=== PATIENT | female | born 1970 | race Caucasian/White ===

== ENCOUNTER 2017-05-07 07:36 | Day surgery (SDC) | payer MEDICAID, OTHER ==
[~2017-05-07 07:36] MED LIST: Lactated Ringers 1,000 ML IV SCH; Lidocaine 1%/Sod Bicarbonate in NS 8.4% 1 ML Syringe IV PRN; Sodium Chloride 0.9% 10 ML Syringe FLUSH PRN
--- NOTE | 2017-05-07 08:10 | PCM.PREANE ---
Preanesthetic Assessment - Procedure Proposed Procedure: L achilles tendon debridement - Anesthesia/Transfusion/Family Hx Anesthesia History: Prior Anesthesia Reaction Type of Anesthesia Reaction: Excessive Nausea/Vomiting Family History of Anesthesia Reaction: No Transfusion History: No Prior Transfusion(s) Additional History: HX of blood clots, cervical cancer - Review of Systems General: No Symptoms Pulmonary: No Symptoms Cardiovascular: Other (HTN) Gastrointestinal: No Symptoms Neurological: Other (finromyalagia) Other: Reports: Diabetes (DM2), Thyroid Problems (hypothyroidism), Depression, Anxiety - Physical Assessment NPO Status Date: 05/07/17 NPO Status Time: 00:00 Pulse: 78 O2 Sat by Pulse Oximetry: 96 Respiratory Rate: 20 Blood Pressure: 128/78 Temperature: 37.0 C Height: 1.63 m Weight: 114.759 kg ASA Class: 2 Mental Status: Alert & Oriented x3 Airway Class: Mallampati = 2 Dentition: Reports: Normal Dentition Thyro-Mental Finger Breadths: 3 Mouth Opening Finger Breadths: 3 ROM/Head Extension: Full Lungs: Clear to Auscultation, Normal Respiratory Effort Cardiovascular: Regular Rate, Regular Rhythm - Allergies Allergies/Adverse Reactions: Allergies Allergy/AdvReac Type Severity Reaction Status Date / Time hydrocodone Allergy Nausea Verified 05/06/17 13:52 - Blood Blood Available: No Product(s) Available: None - Anesthesia Plan Pre-Op Medication Ordered: None - Acknowledgements Anesthesia Type Planned: General Anesthesia (scopolamine patch preop, OETT discussed ) Pt an Appropriate Candidate for the Planned Anesthesia: Yes Alternatives and Risks of Anesthesia Discussed w Pt/Guardian: Yes Pt/Guardian Understands and Agrees with Anesthesia Plan: Yes PreAnesthesia Questionnaire HEENT History: Reports: None Cardiovascular History: Reports: Hypertension Respiratory History: Reports: None Gastrointestinal History: Reports: Other (See Below) Other Gastrointestinal History: intestinal blood clot Genitourinary History: Reports: None SHOVE UP History: Reports: None Musculoskeletal History: Reports: Fibromyalgia, Other (See Below) Other Musculoskeletal History: retrocalcaneal exostosis, tarsal tunnel syndrome , plantar fasciitis Neurological History: Reports: Neuropathy, Diabetic Psychiatric History: Reports: Anxiety, Depression Endocrine/Metabolic History: Reports: Diabetes, Type II, Obesity/BMI 30+, Other (See Below) Other Endocrine/Metabolic History: vitamin B12 deficiency Hematologic History: Reports: None Immunologic History: Reports: None Oncologic (Cancer) History: Reports: None Dermatologic History: Reports: None - Past Surgical History Head Surgeries/Procedures: Reports: None HEENT Surgical History: Reports: Tonsillectomy Cardiovascular Surgical History: Reports: None Respiratory Surgical History: Reports: None GI Surgical History: Reports: Colonoscopy Female Surgical History: Reports: Hysterectomy Male Surgical History: Reports: None Endocrine Surgical History: Reports: None Neurological Surgical History: Reports: None Oncologic Surgical History: Reports: None Dermatological Surgical History: Reports: None - SUBSTANCE USE Smoking Status *Q: Former Smoker Second Hand Smoke Exposure: No Recreational Drug Use History: No - HOME MEDS Home Medications: Home Meds DULoxetine HCl [Duloxetine HCl] 60 mg PO BEDTIME 05/06/17 [History] Lisinopril [Lisinopril] 40 mg PO DAILY 05/06/17 [History] busPIRone [Buspar] 10 mg PO BID 05/06/17 [History] lamoTRIgine [Lamotrigine] 100 mg PO DAILY 05/06/17 [History] metFORMIN [Glucophage] 500 mg PO DAILY 05/06/17 [History] - CURRENT (IN HOUSE) MEDS Current Meds: Current Medications Lactated Ringer's (Ringers, Lactated) 1,000 mls @ 125 mls/hr IV ASDIRECTED SCHUYLER Stop: 05/07/17 23:00 Lidocaine/Sodium Bicarbonate (Buffered Lidocaine 1% In Ns 8.4%) 0.25 ml IV ONETIME PRN PRN Reason: Prior to IV Start Stop: 05/07/17 18:00 Sodium Chloride (Saline Flush) 10 ml FLUSH ASDIRECTED PRN PRN Reason: Keep Vein Open Stop: 05/07/17 18:00
[2017-05-07] MEDS ORDERED: HYDROmorphone 1 MG/ML Syringe ONE ×2 (08:18→11:53)
[2017-05-07] MEDS ORDERED: Ondansetron 4 MG/2 ML SDV ONE (08:18)
[2017-05-07] MEDS ORDERED: Rocuronium 50 MG/5 ML Vial ONE (08:18)
[2017-05-07] MEDS ORDERED: Dexamethasone 4 MG/ML 5 ML MDV ONE (08:18)
[2017-05-07] MEDS ORDERED: ceFAZolin 1 GM Vial ONE (08:18)
[2017-05-07] MEDS ORDERED: Lidocaine 1% 4 ML ONE (08:18)
[2017-05-07] MEDS ORDERED: Lactated Ringers 1,000 ML ONE ×2 (08:18→10:57)
[2017-05-07] MEDS ORDERED: Ketorolac 30 MG/ML SDV ONE (08:18)
[2017-05-07] MEDS ORDERED: Propofol 200 MG/20 ML SDV ONE ×2 (08:19→10:03)
[2017-05-07] MEDS ORDERED: fentaNYL 250 MCG/5 ML SDV ONE (08:19)
[2017-05-07] MEDS ORDERED: Midazolam 1 MG/ML 2 ML SDV ONE (08:19)
[2017-05-07] MEDS ORDERED: Scopolamine 1 MG Transdermal Patch TOP ONE (08:27)
[2017-05-07] MEDS ORDERED: Bupivacaine 0.5% 30 ML SDV ONE (08:52)
[2017-05-07] MEDS ORDERED: Lidocaine 1% 30 ML SDV ONE (08:52)
[2017-05-07] MEDS ORDERED: Albuterol 0.083% 2.5 MG/3 ML Neb Soln NEB PRN (10:25)
[2017-05-07] MEDS ORDERED: HYDROmorphone 0.5 MG/0.5 ML Syringe IVPUSH PRN (10:25)
[2017-05-07] MEDS ORDERED: Ondansetron 4 MG/2 ML SDV IVPUSH PRN (10:25)
[2017-05-07] MEDS ORDERED: diphenhydrAMINE 50 MG/ML SDV IVPUSH PRN (10:25)
[2017-05-07] MEDS ORDERED: Metoclopramide 10 MG/2 ML SDV IV PRN (10:25)
[2017-05-07] MEDS ORDERED: Phenylephrine 1 MG in Sodium Chloride 0.9% 10 ML IV SCH (10:30)
[2017-05-07] MEDS ORDERED: diphenhydrAMINE 50 MG/ML SDV ONE (10:32)
[2017-05-07] MEDS ORDERED: fentaNYL 100 MCG/2 ML SDV ONE ×3 (10:34→12:47)
[2017-05-07] MEDS ORDERED: Neostigmine Methylsulfate 1 MG/ML 5 ML Syringe ONE (10:35)
[2017-05-07] MEDS ORDERED: Labetalol 100 MG/20 ML MDV ONE (12:01)
--- NOTE | 2017-05-07 12:28 | PCM.POSTAN ---
POST ANESTHESIA ASSESSMENT - MENTAL STATUS Mental Status: Alert - VITAL SIGNS Pulse Rate: 70 SaO2: 97 Resp Rate: 8 Blood Pressure: 143/77 Temperature: 36.5 C - RESPIRATORY Respiratory Status: Respiratory Rate WNL, Airway Patent, O2 Saturation Stable, Supplemental Oxygen - CARDIOVASCULAR CV Status: Pulse Rate WNL, Blood Pressure Stable - GASTROINTESTINAL GI Status: No Symptoms - POST OP HYDRATION Hydration Status: Adequate & Stable
--- NOTE | 2017-05-07 12:32 | PCM.OPNOTE ---
- General Post-Op/Procedure Note Date of Surgery/Procedure: 05/07/17 Operative Procedure(s): 1.) Gastrocnemius Recession, LEFT leg. 2.) Debridement/Decompression Achilles Tendon, with Re-attachment using Arthrex Suture bridge. 3.) Retro-Calcaneal Exostectomy, LEFT heel. Pre Op Diagnosis: 1.) Painful, Chronic Achilles tendinosis, LEFT ankle. 2.) Painful, Retro-Calcaneal Exostosis/Bursitis, LEFT heel. 3.) Painful Achilles Equinus, LEFT leg. Anesthesia Technique: General LMA, Local Primary Surgeon: Keagan Irvin II Anesthesia Provider: Alyssa Jon Complications: None Condition: Good Free Text/Narrative:: Patient left the OR for recovery with vital signs stable & vascular status grossly intact, LEFT heel/leg.
[2017-05-07] MEDS: fentaNYL 100 MCG/2 ML SDV IVPUSH PRN ×2 (12:35→12:55)
[2017-05-07] MEDS ORDERED: Acetaminophen/oxyCODONE 325-5 MG Tab PO PRN (13:36)
--- NOTE | 2017-05-07 18:40 | OR ---
DATE OF OPERATION: 05/07/2017 SURGEON: Keagan Irvin II, DPM LOCATION: [facility]. ANESTHESIA: LMA general anesthesia with local block about the left foot and ankle. ANESTHESIA PROVIDER: Alyssa Jon CRNA. HEMOSTASIS: Left pneumatic thigh tourniquet at 300 mmHg pressure for 90 minutes. PREOPERATIVE DIAGNOSIS: 1. Painful and symptomatic chronic Achilles tendinosis, left ankle. 2. Painful and symptomatic retrocalcaneal exostosis and bursitis, left heel. 3. Painful and symptomatic Achilles equinus, left heel. POSTOPERATIVE DIAGNOSIS: 1. Painful and symptomatic chronic Achilles tendinosis, left ankle. 2. Painful and symptomatic retrocalcaneal exostosis and bursitis, left heel. 3. Painful and symptomatic Achilles equinus, left heel. OPERATION PERFORMED: 1. Gastrocnemius recession, left leg. 2. Debridement and decompression of the Achilles tendon with reattachment using Arthrex suture bridge. 3. Retrocalcaneal exostectomy, left calcaneus. DESCRIPTION OF PROCEDURE: Upon arrival and admission to the hospital, the patient was examined and cleared for surgery by the assigned anesthesia provider. The patient was given 3 grams of Ancef IV piggyback, after which she was transferred to the operating room table in the supine position. After the patient had been given a combination of the sedations and was intubated for LMA general anesthesia, she was then repositioned in the prone position. The patient was given a combination of sedations during that time and received 10 mL of 1:1 mixture of 1% lidocaine plain and 0.5% Marcaine plain about the operatory site of the left heel and leg. Left lower extremity was then wrapped with cotton Webril padding above the thigh in preparation for nonsterile pneumatic thigh tourniquet. The left lower extremity was then prepped and draped in the usual aseptic manner. Left lower extremity would then be elevated and exsanguinated using Esmarch bandage before inflating the pneumatic ankle tourniquet to 300 mmHg pressure. The Esmarch bandage was removed and the left lower extremity was placed back to the level of the operating room table. Attention was then directed 15 cm proximal to the insertion of the Achilles tendon where an approximately 4 cm linear incision was created overlying the Achilles aponeurosis. The aponeurosis was then resected from medial to lateral. Closure of this wound was undertaken with 3-0 Vicryl and skin was reapproximated with 4-0 nylon in running interlocking simple suture knots. Attention was then directed to the inferior aspect of the left Achilles tendon at its insertion site where an approximately 6 cm curvilinear incision was created medial to the Achilles tendon and the retrocalcaneal bursitis and exostosis to come to terminate at the most lateral extent of the left heel. This was a controlled depth skin incision taken down to the level of subcutaneous structures with care taken to retract the vital neurovascular structures within the area as well as cauterize and ligate all superficial bleeders as deemed necessary. Continuous soft tissue dissection was then taken down to the level of the Achilles tendon, which was noted to be bulbous and thick and calcific in nature. It was debrided free from the bony overgrowth and exostosis, which had presented itself at the insertion site. The Achilles tendon was debrided and thinned of all tendinosis tissue as well as calcific portions within it. The retrocalcaneal exostosis was resected as well as retrocalcaneal posterior superior prominence and the bursal tissue that was developing in this area. The wound was then copiously lavaged with sterile saline solution and an Arthrex suture bridge was then opened and 4 drill holes were then made into the posterior aspect of the calcaneus and were done so with the insertion of the Achilles tendon centered between the 4 holes. The Arthrex suture bridge allowed for 2 superior swaged on BioComposite screws to be placed within the more proximal drill holes and drawn through the Achilles tendon and then holding it in a cross stitch fashion for a small secondary BioComposite screw to tack down the Achilles tendon at its most distal aspect. The wound was copiously lavaged with sterile saline solution and closure was undertaken while the foot was in a more plantarflexed position with 3-0 Vicryl and 3-0 nylon in the form of running interlocking simple suture knots. An additional 10 mL of 0.5% Marcaine plain were injected about the operatory site. Dressings were then consisted of Betadine soaked Adaptic gauze, 4x4 gauze, Ilan, and an Sanjiv bandage. Upon completion of the surgery, left pneumatic thigh tourniquet was deflated. It was noted digits 1 through 5 of the left lower extremity came pink, indicating normal vascular perfusion had returned. The patient appeared to tolerate the procedure and anesthesia well and would leave the OR for recovery with her vital signs being stable and vascular status intact digits 1 through 5 of the left lower extremity with no apparent complications. In recovery, the patient received written and oral postoperative instructions as well as postoperative pain medication. The patient will ambulate nonweightbearing with crutches and/or knee scooter about her left foot and ankle. Estimated blood loss for this procedure was less than 10 mL and considered negligible. A posterior Ortho Glass fiberglass splint was placed with a 6-inch elastic Sanjiv bandage was then utilized to hold the splint in place. There were no apparent or obvious complications. ESTIMATED BLOOD LOSS: 10-15ccs MMODAL /[id number] SHYAM
--- NOTE | 2017-05-08 06:48 | PCM48HPAN ---
Post Anesthesia Note - EVALUATION WITHIN 48HRS OF ANESTHETIC Vital Signs in Normal Range: Yes Patient Participated in Evaluation: Yes Respiratory Function Stable: Yes Airway Patent: Yes Cardiovascular Function Stable: Yes Hydration Status Stable: Yes Pain Control Satisfactory: Yes Nausea and Vomiting Control Satisfactory: Yes Mental Status Recovered: Yes
== END 2017-05-07 15:00 | disposition home or self-care (01) ==
LOC: JD.SDS 07:36
PROVIDERS: ATTEND Podiatrist Foot & Ankle Surgery
DX: M76.62 Achilles tendinitis, left leg (principal); M77.52 Other enthesopathy of left foot and ankle; M21.6X2 Other acquired deformities of left foot; E11.9 Type 2 diabetes mellitus without complications; F41.9 Anxiety disorder, unspecified; I10 Essential (primary) hypertension; F32.9 Major depressive disorder, single episode, unspecified; Z79.84 Long term (current) use of oral hypoglycemic drugs; Z79.899 Other long term (current) drug therapy; Z87.891 Personal history of nicotine dependence; Z68.41 Body mass index [BMI] 40.0-44.9, adult
CPT/HCPCS: 27650; 27687; 28120; 82962; A9270; C1713; J0690; J1170; J1200; J1885; J2250; J2405; J2710; J3010; J7120; 01472; J1100; J2001; J2704

== ENCOUNTER 2017-09-26 11:33 | Day surgery (SDC) | payer BC, MEDICAID, OTHER ==
[~2017-09-26 11:33] MED LIST changes: +Dexamethasone 4 MG/ML 5 ML MDV ONE; +Ketorolac 30 MG/ML SDV ONE; +Lactated Ringers 1,000 ML ONE; +Lidocaine 1% 6 ML ONE; +Lidocaine 1%/Sod Bicarbonate in NS 8.4% 1 ML Syringe IDERM PRN; -Lidocaine 1%/Sod Bicarbonate in NS 8.4% 1 ML Syringe IV PRN; +Midazolam 1 MG/ML 2 ML SDV ONE; +Ondansetron 4 MG/2 ML SDV ONE; +Propofol 200 MG/20 ML SDV ONE; +Rocuronium 50 MG/5 ML Vial ONE; +ceFAZolin 1 GM Vial ONE; +fentaNYL 250 MCG/5 ML SDV ONE
[2017-09-26] MEDS ORDERED: Bupivacaine 0.5% 30 ML SDV ONE (11:50)
[2017-09-26] MEDS ORDERED: Scopolamine 1.5 MG Transdermal Patch TRDERM ONE (11:54)
[2017-09-26] MEDS ORDERED: Scopolamine 1.5 MG Transdermal Patch TOP ONE (12:05)
--- NOTE | 2017-09-26 12:38 | PCM.PREANE ---
Preanesthetic Assessment - Procedure Proposed Procedure: repair left achilles tendon rupture with achilles tendon jacket graft - Anesthesia/Transfusion/Family Hx Anesthesia History: Prior Anesthesia Reaction Type of Anesthesia Reaction: Excessive Nausea/Vomiting Family History of Anesthesia Reaction: No Transfusion History: No Prior Transfusion(s) - Review of Systems General: No Symptoms Pulmonary: No Symptoms Cardiovascular: Other (hypertension) Gastrointestinal: No Symptoms (in mornings- feeling better - no emesis today), Nausea (said its from her meds), Vomiting Neurological: No Symptoms, Other (neuropathy and fibromyalgia) Other: Reports: Diabetes, Sinus Problem (allergy thing), Depression, Anxiety - Physical Assessment NPO Status Date: 09/25/17 NPO Status Time: 21:00 Pulse: 86 O2 Sat by Pulse Oximetry: 95 Respiratory Rate: 16 Blood Pressure: 130/80 Temperature: 98.6 F Height: 5 ft 4 in Weight: 122 kg ASA Class: 2 Mental Status: Alert & Oriented x3 Airway Class: Mallampati = 2 Dentition: Reports: Normal Dentition, Missing Tooth/Teeth Thyro-Mental Finger Breadths: 3 Mouth Opening Finger Breadths: 3 ROM/Head Extension: Full Lungs: Clear to Auscultation, Normal Respiratory Effort Cardiovascular: Regular Rate, Regular Rhythm - Lab Values: Laboratory Last Values POC Glucose 114 mg/dL (70-105) H 09/26/17 12:02 - Allergies Allergies/Adverse Reactions: Allergies Allergy/AdvReac Type Severity Reaction Status Date / Time hydrocodone Allergy Nausea Verified 05/06/17 13:52 - Blood Blood Available: No - Acknowledgements Anesthesia Type Planned: General Anesthesia Pt an Appropriate Candidate for the Planned Anesthesia: Yes Alternatives and Risks of Anesthesia Discussed w Pt/Guardian: Yes Pt/Guardian Understands and Agrees with Anesthesia Plan: Yes PreAnesthesia Questionnaire HEENT History: Reports: None Cardiovascular History: Reports: Hypertension Respiratory History: Reports: None Gastrointestinal History: Reports: Other (See Below) Other Gastrointestinal History: intestinal blood clot Genitourinary History: Reports: None FORMULA BOTTLER History: Reports: None Musculoskeletal History: Reports: Fibromyalgia, Other (See Below) Other Musculoskeletal History: retrocalcaneal exostosis, tarsal tunnel syndrome , plantar fasciitis Neurological History: Reports: Neuropathy, Diabetic Psychiatric History: Reports: Anxiety, Depression Endocrine/Metabolic History: Reports: Diabetes, Type II, Obesity/BMI 30+, Other (See Below) Other Endocrine/Metabolic History: vitamin B12 deficiency Hematologic History: Reports: None Immunologic History: Reports: None Oncologic (Cancer) History: Reports: None Dermatologic History: Reports: None - Past Surgical History Head Surgeries/Procedures: Reports: None HEENT Surgical History: Reports: Tonsillectomy Cardiovascular Surgical History: Reports: None Respiratory Surgical History: Reports: None GI Surgical History: Reports: Cholecystectomy, Colonoscopy Female Surgical History: Reports: Hysterectomy Male Surgical History: Reports: None Endocrine Surgical History: Reports: None Neurological Surgical History: Reports: None Musculoskeletal Surgical History: Reports: Other (See Below) (repair left achilles tendon) Oncologic Surgical History: Reports: None Dermatological Surgical History: Reports: None - SUBSTANCE USE Smoking Status *Q: Former Smoker (quit 15 years ago) Tobacco Use Within Last Twelve Months: No Second Hand Smoke Exposure: Yes Days Per Week of Alcohol Use: 1 (rare) Recreational Drug Use History: No - HOME MEDS Home Medications: Home Meds DULoxetine HCl [Duloxetine HCl] 60 mg PO BEDTIME 05/06/17 [History] Lisinopril 40 mg PO DAILY 05/06/17 [History] busPIRone [Buspar] 10 mg PO BID 05/06/17 [History] lamoTRIgine [Lamotrigine] 100 mg PO DAILY 05/06/17 [History] metFORMIN [Glucophage] 500 mg PO DAILY 05/06/17 [History] - CURRENT (IN HOUSE) MEDS Current Meds: Current Medications Miscellaneous Information (Remove Patch) 1 ea TRDERM ONETIME ONE Stop: 09/29/17 12:01 Discontinued Medications Bupivacaine HCl (Marcaine 0.5%) Confirm Administered Dose 30 ml .ROUTE .STK-MED ONE Stop: 09/26/17 11:51 Cefazolin Sodium (Ancef) Confirm Administered Dose 2 gm .ROUTE .STK-MED ONE Stop: 09/26/17 10:45 Dexamethasone (Dexamethasone) Confirm Administered Dose 20 mg .ROUTE .STK-MED ONE Stop: 09/26/17 10:45 Fentanyl (Sublimaze) Confirm Administered Dose 250 mcg .ROUTE .STK-MED ONE Stop: 09/26/17 10:46 Lactated Ringer's (Ringers, Lactated) 1,000 mls @ 125 mls/hr IV ASDIRECTED SCHUYLER Stop: 09/25/17 23:00 Lidocaine HCl (Xylocaine-Mpf 1%) Confirm Administered Dose 6 mls @ as directed .ROUTE .STK-MED ONE Stop: 09/26/17 10:45 Lactated Ringer's (Ringers, Lactated) Confirm Administered Dose 1,000 mls @ as directed .ROUTE .STK-MED ONE Stop: 09/26/17 10:45 Ketorolac Tromethamine (Toradol) Confirm Administered Dose 30 mg .ROUTE .STK- MED ONE Stop: 09/26/17 10:45 Lidocaine HCl (Xylocaine-Mpf 1%) Confirm Administered Dose 30 ml .ROUTE .STK- MED ONE Stop: 09/26/17 11:51 Lidocaine/Sodium Bicarbonate (Buffered Lidocaine 1% In Ns 8.4%) 0.25 ml IDERM ONETIME PRN PRN Reason: Prior to IV Start Stop: 09/25/17 18:00 Midazolam HCl (Versed 1 Mg/Ml) Confirm Administered Dose 2 mg .ROUTE .STK-MED ONE Stop: 09/26/17 10:45 Ondansetron HCl (Zofran) Confirm Administered Dose 4 mg .ROUTE .STK-MED ONE Stop: 09/26/17 10:45 Propofol (Diprivan 20 Ml) Confirm Administered Dose 200 mg .ROUTE .STK-MED ONE Stop: 09/26/17 10:45 Rocuronium [place] (Zemuron) Confirm Administered Dose 50 mg .ROUTE .STK-MED ONE Stop: 09/26/17 10:45 Scopolamine (Transderm-Scop) 1.5 mg TRDERM ONETIME ONE Stop: 09/26/17 11:55 Last Admin: 09/26/17 12:10 Dose: 1.5 mg Scopolamine (Transderm-Scop) 1.5 mg TOP ONETIME ONE Stop: 09/26/17 12:06 Last Admin: 09/26/17 12:14 Dose: Not Given Sodium Chloride (Saline Flush) 10 ml FLUSH ASDIRECTED PRN PRN Reason: Keep Vein Open Stop: 09/25/17 18:00
[2017-09-26] MEDS ORDERED: ceFAZolin 1 GM Vial ONE (13:09)
[2017-09-26] MEDS ORDERED: HYDROmorphone 0.5 MG/0.5 ML Syringe ONE (13:32)
[2017-09-26] MEDS ORDERED: diphenhydrAMINE 50 MG/ML SDV ONE (13:41)
[2017-09-26] MEDS: Lidocaine 1% 30 ML SDV ONE ×2 (13:50→15:11)
[2017-09-26] MEDS ORDERED: Ondansetron 4 MG/2 ML SDV IVPUSH PRN (13:57)
[2017-09-26] MEDS ORDERED: Meperidine PF 50 MG/ML Syringe IVPUSH PRN (13:57)
[2017-09-26] MEDS ORDERED: HYDROmorphone 0.5 MG/0.5 ML Syringe IVPUSH PRN (13:57)
[2017-09-26] MEDS ORDERED: Sodium Chloride 0.9% 0 ML ONE ×2 (14:02)
[2017-09-26] MEDS ORDERED: Lactated Ringers 1,000 ML ONE ×2 (14:10→15:12)
[2017-09-26] MEDS ORDERED: ePHEDrine/Normal Saline 25 MG/5 ML Syringe ONE (15:02)
--- NOTE | 2017-09-26 15:31 | PCM.OPNOTE ---
- General Post-Op/Procedure Note Date of Surgery/Procedure: 09/26/17 Operative Procedure(s): Achilles Tendon Rupture Repair, LEFT ankle. Pre Op Diagnosis: Painful/Symptomatic Acute Achilles Tendon Rupture, LEFT ankle Post-Op Diagnosis: Same Anesthesia Technique: General LMA, Local Primary Surgeon: Keagan Irvin II Anesthesia Provider: Paul Webster Complications: None Condition: Good Free Text/Narrative:: Patient left OR for PACU recovery, with vital signs stable and vascular status intact, Left lower extremity.
--- NOTE | 2017-09-26 15:38 | PCM.POSTAN ---
POST ANESTHESIA ASSESSMENT - MENTAL STATUS Mental Status: Alert, Oriented - VITAL SIGNS Pulse Rate: 106 SaO2: 96 Resp Rate: 15 Blood Pressure: 121/61 Temperature: 97.7 F - RESPIRATORY Respiratory Status: Respiratory Rate WNL, Airway Patent, O2 Saturation Stable, Supplemental Oxygen - CARDIOVASCULAR CV Status: Pulse Rate WNL, Blood Pressure Stable - GASTROINTESTINAL GI Status: No Symptoms - PAIN Pain Score: 0 (then said 10) - POST OP HYDRATION Hydration Status: Adequate & Stable
[2017-09-26] MEDS: fentaNYL 100 MCG/2 ML SDV IVPUSH PRN ×2 (15:52→16:07)
[2017-09-26] MEDS ORDERED: fentaNYL 100 MCG/2 ML SDV ONE (16:06)
--- NOTE | 2017-09-26 16:10 | PCM48HPAN ---
Post Anesthesia Note - EVALUATION WITHIN 48HRS OF ANESTHETIC Vital Signs in Normal Range: Yes Patient Participated in Evaluation: Yes Respiratory Function Stable: Yes Airway Patent: Yes Cardiovascular Function Stable: Yes Hydration Status Stable: Yes Pain Control Satisfactory: Yes (receiving pain meds) Nausea and Vomiting Control Satisfactory: Yes (denies) Mental Status Recovered: Yes
[2017-09-26] MEDS ORDERED: Acetaminophen/oxyCODONE 325-5 MG Tab PO PRN (16:21)
--- NOTE | 2017-09-26 21:44 | OR ---
DATE OF OPERATION: 09/26/2017 SURGEON: Keagan Irivn II, DPM LOCATION: [facility]. ANESTHESIA: LMA general anesthesia with local block about the left Achilles tendon. ANESTHESIA PROVIDER: Paul Webster CRNA. HEMOSTASIS: Left pneumatic thigh tourniquet at 220 mmHg. PREOPERATIVE DIAGNOSIS: Painful and symptomatic acute Achilles tendon rupture, left ankle. POSTOPERATIVE DIAGNOSIS: Painful and symptomatic acute Achilles tendon rupture, left ankle. OPERATION PERFORMED: Achilles tendon rupture repair, left ankle using Graftjacket. DESCRIPTION OF PROCEDURE: Upon arrival and admission to the hospital, the patient was examined and cleared for surgery by the assigned anesthesia provider. IV access was obtained in the preoperative area after which the patient was given prophylactic antibiotics consisting of 3 g of Ancef IV piggyback. The patient was then brought and escorted to the OR via gurney and then transferred onto the operating room table in the prone position after patient had been sedated and intubated for LMA general anesthesia. The patient then received 10 mL of 1:1 mixture of 1% lidocaine plain and 0.5% Marcaine plain for removal of local infiltrative block administered about the more distal portion of the left Achilles tendon near its insertion site. The left lower extremity was then wrapped with cotton Webril padding in preparation for nonsterile pneumatic thigh tourniquet which was then draped with a sterile drape. The left lower extremity was then prepped and draped in the usual aseptic manner. Left lower extremity was then elevated and exsanguinated with the use of an Esmarch bandage before inflating the left pneumatic thigh tourniquet to 220 mmHg. The Esmarch bandage was removed and the left lower extremity was placed back to the level of the operating room table. Attention was then directed to the previous incision that had been created at the posterior aspect of the most distal portion of the Achilles and its insertion into the posterior calcaneus. This was a controlled-depth 8 cm skin incision with care taken to retract the vital neurovascular structures within the area as well as to cauterize and ligate all superficial bleeders as deemed necessary. Continuous soft tissue dissection was then taken through a large amount of scar tissue and down to the paratenon where there was noted to be a watershed longitudinal rupture of the Achilles tendon. From its insertion site into the posterior calcaneus on inspection, it was noted that the previous surgeries utilization of an Arthrex suture bridge was still intact within the bone, but there was an intrasubstance rupture of the most distal portion of the Achilles tendon that took place. With the use of a 4 x 7 cm Graftjacket acellular was then incorporated after Krackow stitches were utilized, resecting the hematoma and the degenerative portions of the Achilles tendon and then in a circumferential manner incorporating the Graftjacket with the use of 2-0 and 0 Ethibond sutures. The wound was then copiously lavaged with sterile saline solution and closure was undertaken utilizing 3-0 Vicryl, 4-0 Vicryl, and 3-0 nylon. The anesthesia site received an additional 10 mL of 0.5% Marcaine plain while the foot was held in a hyper dorsiflexed position. Upon completion of the surgery, the dressings consisted of Betadine-soaked Adaptic gauze, 4 x 4 gauze, Ilan, and an Sanjiv bandage, and then upon completion of the surgery, the left pneumatic thigh tourniquet was deflated and was noted the digits 1 through 5 of the left foot became pink indicating normal vascular perfusion had returned. The patient then left the OR for recovery with her vital signs being stable and vascular status intact digits 1 through 5 of the left lower extremity with no apparent complications. In recovery, the patient received written and oral postop instructions as well as postoperative pain medication. The patient will ambulate nonweightbearing with a posterior splint that had been placed in the postanesthesia care unit with the use of cotton Webril and a 6 inch Sanjiv bandage. Estimated blood loss for this procedure was approximately 10 mL, but considered negligible. There were no apparent or obvious complications. ESTIMATED BLOOD LOSS: MMODAL /[id number]
== END 2017-09-26 17:10 | disposition home or self-care (01) ==
LOC: JD.SDS 11:33
PROVIDERS: ATTEND Podiatrist Foot & Ankle Surgery
DX: S86.012A Strain of left Achilles tendon, initial encounter (principal); E66.9 Obesity, unspecified; F41.9 Anxiety disorder, unspecified; F31.9 Bipolar disorder, unspecified; E11.40 Type 2 diabetes mellitus with diabetic neuropathy, unspecified; I10 Essential (primary) hypertension; X58.XXXA Exposure to other specified factors, initial encounter; Z88.5 Allergy status to narcotic agent; Z79.899 Other long term (current) drug therapy; Z87.891 Personal history of nicotine dependence; Z90.89 Acquired absence of other organs; Z90.49 Acquired absence of other specified parts of digestive tract; Z90.710 Acquired absence of both cervix and uterus; Z68.30 Body mass index [BMI] 30.0-30.9, adult; Z79.84 Long term (current) use of oral hypoglycemic drugs
CPT/HCPCS: 27652; 82962; A9270; J0690; J1170; J1200; J1885; J2001; J2250; J2405; J3010; J7050; J7120; J1100; J2704; J7030; J7040

== ENCOUNTER 2018-05-20 06:47 | Day surgery (SDC) | payer MEDICAID ==
[2018-05-20] MEDS ORDERED: Lidocaine 1% 30 ML SDV ONE (06:58)
[2018-05-20] MEDS ORDERED: Bupivacaine 0.5% 30 ML SDV ONE (06:59)
[2018-05-20] MEDS ORDERED: Lactated Ringers 1,000 ML IV SCH (07:00)
[2018-05-20] MEDS ORDERED: Lidocaine 1%/Sod Bicarbonate in NS 8.4% 1 ML Syringe IDERM PRN (07:00)
[2018-05-20] MEDS ORDERED: Sodium Chloride 0.9% 10 ML Syringe FLUSH PRN (07:00)
[2018-05-20] MEDS ORDERED: Scopolamine 1.5 MG Transdermal Patch TOP ONE (07:23)
--- NOTE | 2018-05-20 07:25 | PCM.PREANE ---
Preanesthetic Assessment - Anesthesia/Transfusion/Family Hx Anesthesia History: Prior Anesthesia Reaction (nausea) Family History of Anesthesia Reaction: No Transfusion History: No Prior Transfusion(s) - Review of Systems General: No Symptoms Pulmonary: No Symptoms Cardiovascular: Dyspnea on Exertion Gastrointestinal: No Symptoms Neurological: Numbness (fingers and toes), Seizure ("about nine years ago after shoulder surgery"), Tingling (fingers and toes) Other: Reports: Diabetes (gluco check this am 131), Depression, Anxiety - Physical Assessment NPO Status Date: 05/19/18 NPO Status Time: 23:00 Pulse: 76 O2 Sat by Pulse Oximetry: 96 Respiratory Rate: 16 Blood Pressure: 122/65 Temperature: 36.5 C Height: 1.63 m Weight: 121.79 kg ASA Class: 2 Mental Status: Alert & Oriented x3 Airway Class: Mallampati = 1 Dentition: Reports: Edentulous (top), Missing Tooth/Teeth (bottom) Thyro-Mental Finger Breadths: 3 Mouth Opening Finger Breadths: 2 ROM/Head Extension: Full Lungs: Clear to Auscultation, Normal Respiratory Effort Cardiovascular: Regular Rate, Regular Rhythm - Lab Values: on chart - Imaging/EKG Impressions: SR on chart - Allergies Allergies/Adverse Reactions: Allergies Allergy/AdvReac Type Severity Reaction Status Date / Time No Known Allergies Allergy Verified 05/19/18 14:16 - Blood Blood Available: No Product(s) Available: None - Anesthesia Plan Pre-Op Medication Ordered: None - Acknowledgements Anesthesia Type Planned: General Anesthesia Pt an Appropriate Candidate for the Planned Anesthesia: Yes Alternatives and Risks of Anesthesia Discussed w Pt/Guardian: Yes Pt/Guardian Understands and Agrees with Anesthesia Plan: Yes PreAnesthesia Questionnaire HEENT History: Reports: None Cardiovascular History: Reports: Hypertension Respiratory History: Reports: None Gastrointestinal History: Reports: GERD, Other (See Below) Other Gastrointestinal History: intestinal blood clot, nausea Genitourinary History: Reports: None [employer] History: Reports: None Musculoskeletal History: Reports: Fibromyalgia, Other (See Below) Other Musculoskeletal History: retrocalcaneal exostosis, tarsal tunnel syndrome , plantar fasciitis, retrocalcaneal bursitis, left achilles tendon rupture, bilateral patellofemoral syndrome Neurological History: Reports: Neuropathy, Diabetic Psychiatric History: Reports: Anxiety, Depression Endocrine/Metabolic History: Reports: Diabetes, Type II, Obesity/BMI 30+, Other (See Below) Other Endocrine/Metabolic History: vitamin B12 deficiency Hematologic History: Reports: None Immunologic History: Reports: None Oncologic (Cancer) History: Reports: None Dermatologic History: Reports: Cellulitis - Past Surgical History Head Surgeries/Procedures: Reports: None HEENT Surgical History: Reports: Tonsillectomy Cardiovascular Surgical History: Reports: None Respiratory Surgical History: Reports: None GI Surgical History: Reports: Cholecystectomy, Colonoscopy Female Surgical History: Reports: Hysterectomy Male Surgical History: Reports: None Endocrine Surgical History: Reports: None Neurological Surgical History: Reports: None Musculoskeletal Surgical History: Reports: Other (See Below) Other Musculoskeletal Surgeries/Procedures:: left achilles tendon repair Oncologic Surgical History: Reports: None Dermatological Surgical History: Reports: None - SUBSTANCE USE Smoking Status *Q: Former Smoker Tobacco Use Within Last Twelve Months: No Second Hand Smoke Exposure: Yes Days Per Week of Alcohol Use: 0 Number of Drinks Per Day: 0 Total Drinks Per Week: 0 Recreational Drug Use History: No - HOME MEDS Home Medications: Home Meds busPIRone [Buspar] 10 mg PO BID 05/06/17 [History] lamoTRIgine [Lamotrigine] 200 mg PO DAILY 05/06/17 [History] metFORMIN [Glucophage] 500 mg PO DAILY 05/06/17 [History] Hydrocodone/Acetaminophen [Hydrocodon-Acetaminophen 5-325] 1 - 2 tab PO Q4H PRN 09/26/17 [History] Promethazine [Phenergan] 25 mg PO QID PRN 09/26/17 [History] QUEtiapine Fumarate [Quetiapine Fumarate] 400 mg PO BEDTIME 09/26/17 [History] traMADol [Ultram] 50 mg PO Q4HR PRN 09/26/17 [History] Diclofenac Sodium [Voltaren 1% Gel] 1 dose TOP QID 05/19/18 [History] Lisinopril [Prinivil] 10 mg PO DAILY 05/19/18 [History] oxyCODONE HCl/Acetaminophen [Percocet 5-325 mg Tablet] 1 tab PO Q4H PRN [History] - CURRENT (IN HOUSE) MEDS Current Meds: Current Medications Lactated Ringer's (Ringers, Lactated) 1,000 mls @ 125 mls/hr IV ASDIRECTED SCHUYLER Stop: 05/20/18 23:00 Lidocaine/Sodium Bicarbonate (Buffered Lidocaine 1% In Ns 8.4%) 0.25 ml IDERM ONETIME PRN PRN Reason: Prior to IV Start Stop: 05/20/18 18:00 Sodium Chloride (Saline Flush) 10 ml FLUSH ASDIRECTED PRN PRN Reason: Keep Vein Open Stop: 05/20/18 18:00 Discontinued Medications Bupivacaine HCl (Marcaine 0.5%) Confirm Administered Dose 30 ml .ROUTE .STK-MED ONE Stop: 05/20/18 07:00 Lidocaine HCl (Xylocaine-Mpf 1%) Confirm Administered Dose 30 ml .ROUTE .STK- MED ONE Stop: 05/20/18 06:59
[2018-05-20] MEDS ORDERED: Midazolam 1 MG/ML 2 ML SDV ONE (07:39)
[2018-05-20] MEDS ORDERED: Propofol 200 MG/20 ML SDV ONE (07:39)
[2018-05-20] MEDS ORDERED: fentaNYL 250 MCG/5 ML SDV ONE (07:39)
[2018-05-20] MEDS ORDERED: Rocuronium 50 MG/5 ML Vial ONE (07:39)
[2018-05-20] MEDS ORDERED: Ondansetron 4 MG/2 ML SDV ONE (07:39)
[2018-05-20] MEDS ORDERED: Lidocaine 1% 4 ML ONE (07:40)
[2018-05-20] MEDS ORDERED: ceFAZolin 1 GM Vial ONE ×2 (07:40→08:21)
[2018-05-20] MEDS ORDERED: Lactated Ringers 1,000 ML ONE (09:06)
[2018-05-20] MEDS ORDERED: HYDROmorphone 0.5 MG/0.5 ML Syringe ONE ×2 (09:07→09:08)
[2018-05-20] MEDS ORDERED: Ketorolac 30 MG/ML SDV ONE (09:39)
--- NOTE | 2018-05-20 10:02 | CR ---
Right ankle: Single lateral view of the right ankle was obtained utilizing C-arm device. Plantar spur is seen. Surgical change noted at the attachment of the Achilles tendon to the calcaneus. Fluoroscopy time given as 4.4 seconds. Impression: 1. Procedural study as noted above. Diagnostic code #2
--- NOTE | 2018-05-20 10:16 | PCM.POSTAN ---
POST ANESTHESIA ASSESSMENT - MENTAL STATUS Mental Status: Alert, Oriented - VITAL SIGNS Pulse Rate: 86 SaO2: 92 Resp Rate: 10 Blood Pressure: 130/65 Temperature: 36.4 C - RESPIRATORY Respiratory Status: Respiratory Rate WNL, Airway Patent, O2 Saturation Stable, Supplemental Oxygen - CARDIOVASCULAR CV Status: Pulse Rate WNL, Blood Pressure Stable - GASTROINTESTINAL GI Status: No Symptoms - PAIN Pain Score: 0 - POST OP HYDRATION Hydration Status: Adequate & Stable - OBSERVATIONS Free Text/Narrative:: no anesthesia complications noted
--- NOTE | 2018-05-20 10:18 | PCM.OPNOTE ---
- General Post-Op/Procedure Note Date of Surgery/Procedure: 05/20/18 Operative Procedure(s): 1.) Gastrocnemius Recession RIGHT lower leg. 2.) Debridement/Decompression, RIGHT Achilles tendon with Re-attachment using Arthrex Suture Bridge. 3.) Retro-Calcaneal Exostectomy RIGHT heel Pre Op Diagnosis: 1.) Chronic Achilles Tendonosis, RIGHT heel. 2.) Retro- Calcaneal Exostosis, RIGHT heel. 3.) Achilles Equinus, RIGHT heel Anesthesia Technique: General LMA, Local Primary Surgeon: Keagan Irvin II Anesthesia Provider: Javier Cameron Complications: None Condition: Good Free Text/Narrative:: Patient left the OR for recovery with vital signs stable & vascular status grossly intact to digits 1-5 RIGHT foot/ankle.
[2018-05-20] MEDS: fentaNYL 100 MCG/2 ML SDV IVPUSH PRN ×2 (10:40→10:53)
[2018-05-20] MEDS ORDERED: Acetaminophen/oxyCODONE 325-5 MG Tab PO PRN (10:43)
[2018-05-20] MEDS ORDERED: Haloperidol Lactate 5 MG/ML SDV IVPUSH ONE (11:33)
--- NOTE | 2018-05-20 16:14 | OR ---
DATE OF OPERATION: 05/20/2018 SURGEON: Keagan Irvin II, DPM LOCATION: [facility]. ANESTHESIA: LMA general anesthesia with local block about the right lower extremity. ANESTHESIA PROVIDER: Javier Cameron CRNA. HEMOSTASIS: Right pneumatic thigh tourniquet at 300 mmHg pressure for 66 minutes. PREOPERATIVE DIAGNOSIS: 1. Painful symptomatic chronic Achilles tendinosis, right heel. 2. Painful and symptomatic retrocalcaneal exostosis, right heel. 3. Painful symptomatic Achilles equinus, right heel. POSTOPERATIVE DIAGNOSIS: 1. Painful symptomatic chronic Achilles tendinosis, right heel. 2. Painful and symptomatic retrocalcaneal exostosis, right heel. 3. Painful symptomatic Achilles equinus, right heel. OPERATION PERFORMED: 1. Gastrocnemius recession, right lower leg. 2. Debridement and decompression, right Achilles tendon with reattachment using Arthrex suture bridge. 3. Retrocalcaneal exostectomy, right heel. DESCRIPTION OF PROCEDURE: Upon arrival on admission to the hospital, patient was examined and cleared for surgery by the assigned anesthesia provider. IV access was obtained in the preoperative area, at which patient was given prophylactic antibiotics consisting of 3 g of Ancef IV piggyback. The patient was then brought to the OR via gurney and transferred to operating table in the prone position. The patient was given a combination of sedations and was intubated for LMA general anesthesia prior to be in the prone position. The patient during the time of sedation was injected with 10 mL of 0.5% Marcaine plain, 1% lidocaine plain in form of local infiltrative block about the right lower extremity. The right lower extremity was then wrapped with cotton Webril padding for nonsterile pneumatic thigh tourniquet which was then draped in a sterile drape. The right lower extremity would then be prepped and draped in usual aseptic manner. While the patient was in the prone position, the right lower extremity would then be elevated and exsanguinated with the use of an Esmarch bandage to 300 mmHg pressure. The Esmarch bandage was removed. The right lower extremity placed back to the operating room table. Attention was then directed to the posterior inferior aspect of the right lower extremity where approximately a 4 cm linear incision was created. The post residual aspect overlying the distal gastrocnemius before it became amalgamated to create the Achilles tendon. There was a controlled depth skin incision taken down to the level of the subcutaneous structures with care taken to retract the vital neurovascular structures within the area as well as cauterize and/or ligate all superficial bleeders as deemed necessary. Continuous soft tissue dissection was then taken down to the level of the fascial covering of the gastrocnemius muscle, which was then released from medial to lateral with a Metzenbaum scissors. This allowed for the gastrocnemius muscle to be recessed and created at least 1 cm of decreased in touching at length over the gastrocnemius muscle. The wound was then copiously lavaged with sterile saline solution. The fascial covering was reapproximated with 3-0 Vicryl and the skin was reapproximated utilizing 4-0 Monocryl and subcuticular layer with Steri-Strips in place. After this was undertaken, attention was then directed to the posterior inferior aspect of the right heel where an approximately 6 cm curvilinear incision was created medial to the Achilles tendon at its insertion site. This was an incision that was maintained medial to the Luz Elena's deformity as well. The right heel was then dissected free of its subcutaneous soft tissue structures with care taken to retract any vital neurovascular structures within the area as well as cauterized or ligated all superficial bleeders as deemed necessary. Continuous soft tissue dissection was taken down to the level of the Achilles tendon and that was in a more tendinosis configuration, was then dissected and the Achilles tendon was freed off the posterior aspect of the calcaneus. With the use of a power sagittal saw, the 3 mm worth of bone was resected from the posterior aspect of the heel and the medial lateral aspects were then chamfered to reduce any bony prominence in this area. An Arthrex suture bridge kit was then utilized to create four 3.5 mm drill holes in the posterior aspect of the calcaneus, which were then tapped after which a 3.2 mm drill was undertaken to allow for the bioabsorbable screws to be placed with the switched on a #2 FiberWire. This allowed for a double row construct keeping the Achilles down and intact with the resected surface of the posterior calcaneus. The wound was then copiously lavaged with sterile saline solution and the remaining FiberWire was cut just proximal to the actual bioabsorbable screws. The paratenon as well as the subcuticular structures were reapproximated utilizing 3-0 Vicryl and the skin was then reapproximated utilizing 4-0 nylon for a running interlocking simple suture knots. The patient appeared to tolerate the procedure and anesthesia well and an additional 20 mL of 0.5% Marcaine plain were injected about the operatory sites of the gastroc recession as well as the Achilles tendon debridement. The right pneumatic thigh tourniquet was deflated after 66 minutes of being inflated and it was noted that digits 1 through 5 of the right lower extremity became pink indicating normal vascular perfusion and returned to the right lower extremity. There were no apparent or obvious complications. A posterior splint of 5-inch width was then applied to the posterior aspect of the right lower extremity and the foot was maintained in a plantar flexed position. These allowed for dressings to be consisted of Betadine-soaked Adaptic gauze, 4 x 4 gauze, Ilan, and another REECE bandage. The patient tolerated the procedure and anesthesia well, left the OR for recovery with vital signs stable, vascular status intact to digits 1 through 5, right lower extremity. There were no apparent obvious complications. Patient will ambulate nonweightbearing with crutches and/or knee scooter and will follow up within the next 3 days for first postop dressing change. ESTIMATED BLOOD LOSS: For this procedure was less than 10 mL and considered negligible. BER /[id number]
== END 2018-05-20 12:10 | disposition home or self-care (01) ==
LOC: JD.SDS 06:47
PROVIDERS: ATTEND Podiatrist Foot & Ankle Surgery
DX: M77.31 Calcaneal spur, right foot (principal); M76.61 Achilles tendinitis, right leg; M21.6X1 Other acquired deformities of right foot; I10 Essential (primary) hypertension; E11.40 Type 2 diabetes mellitus with diabetic neuropathy, unspecified; E66.9 Obesity, unspecified; Z68.42 Body mass index [BMI] 45.0-49.9, adult; Z87.891 Personal history of nicotine dependence; Z79.84 Long term (current) use of oral hypoglycemic drugs; Z79.899 Other long term (current) drug therapy
CPT/HCPCS: 27650; 27687; 28100; 76000; 82962; 93005; A9270; C1713; J0690; J1170; J1630; J1885; J2001; J2250; J2405; J2704; J3010; J3490; J7120; 01480